=== PATIENT | female | born 1950 | race Two or more races ===

== ENCOUNTER 2018-05-22 13:12 | Emergency (ER) | payer SELFPAY ==
[~2018-05-22] VITALS: Ht 160 cm; Wt 50.8 kg
[2018-05-22 13:20] VITALS: BP 119/71
[2018-05-22 14:00] LABS: APPEARANCE,URINE CLEAR; BILIRUBIN, URINE NEGATIVE (NEGATIVE); COLOR,URINE PALE YELLOW; GLUCOSE, URINE (UA) NEGATIVE (NEGATIVE); KETONES,URINE NEGATIVE (NEGATIVE); LEUKOCYTE ESTERASE ,URINE 1+ (NEGATIVE); NITRITE,URINE NEGATIVE (NEGATIVE); PH,URINE 5 (4.5-8.0); PROTEIN,URINE NEGATIVE (NEGATIVE); UROBILINOGEN,URINE NORMAL MG/DL (0.0-1.0)
--- NOTE | 2018-05-22 14:15 | Emergency Room Report ---
History of Present Illness General Chief Complaint: Female Urogenital Problems Source: Patient Present Illness HPI 67-year-old female patient presents ER complaining of dysuria for the past 2 days. Patient reports she has been taking a urine pain medicine for relief of painful urination, reports symptoms relieved when taking medication. Reports frequency during this time. Denies hematuria, dysuria, urgency. Denies fever, chest pain, shortness breath, abdominal pain, flank pain, vomiting. Denies vaginal discharge. Allergies: Coded Allergies: No Known Allergies (Unverified , 05/22/18) Patient History Past Medical History: see triage record Reviewed Nursing Documentation: PMH: Agreed; PSxH: Agreed Nursing Documentation-PMH Past Medical History: No History, Except For Hx Diabetes: No - hypothiroid Hx Cancer: Yes - throat CA Review of Systems All Other Systems: negative except mentioned in HPI Physical Exam Vital Signs Date Time Temp Pulse Resp B/P (MAP) Pulse Ox O2 Delivery O2 Flow Rate FiO2 05/22/18 13:18 97.7 88 18 119/71 98 Room Air Sp02 EP Interpretation: reviewed, normal General Appearance: well appearing, no apparent distress, alert, GCS 15, non- toxic Head: normocephalic, atraumatic Eyes: bilateral eye normal inspection, bilateral eye PERRL ENT: hearing grossly normal, normal pharynx, no angioedema, normal voice, uvula midline, moist mucus membranes Neck: full range of motion Respiratory: lungs clear, normal breath sounds, no rhonchi, no respiratory distress, no accessory muscle use, no wheezing, speaking full sentences Cardiovascular #1: regular rate, rhythm, no edema Gastrointestinal: non tender, soft, no mass, non-distended, no guarding, no rebound Genitourinary: no CVA tenderness Musculoskeletal: back normal, digits/nails normal, gait/station normal, normal range of motion, non-tender, no calf tenderness, pelvis stable Neurologic: alert, oriented x3, responsive, motor strength/tone normal, sensory intact Psychiatric: mood/affect normal Skin: no rash Medical Decision Making PA Attestation Dr. Kennedy is my supervising Physician whom patient management has been discussed with. Diagnostic Impression: Primary Impression: Urinary tract infection ER Course Pt presents to ED c/o dysuria and frequency. DDX considered but are not limited to cystitis, pyelonephritis, STI, vaginitis, . 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 VITAL SIGNS are WNL, patient is afebrile. Ordered UA. ER COURSE UA results show 4+ blood and patient symptomatic, few epithelial cells with moderate bacteria, indicate likely UTI, will treat with abx. If concern for STI, followup with STI clinic for testing and treatment. Denies STI concern. Patient is resting comfortably in chair, nontoxic appearing, in no acute distress. Patient states they feel better and is ready to go home. ER precautions given. Follow with primary care provider to discuss further treatment and referral to urology specialist. Continue take medication for pain symptoms. DISCHARGE -Rx provided for Keflex Patient is stable for discharge. Patient resting comfortably, in no acute distress, nontoxic appearing, talking without difficulty. Will provide with patient care instructions and any necessary prescriptions. Patient understands and agrees to treatment plan. Patient encouraged to drink plenty of fluids. Patient to take medication as instructed. Care plan and follow-up instructions provided. Patient questions asked and answered. Reports understanding and agreement to treatment plan. Patient instructed to follow-up with primary care provider in 3 - 5 days. ER precautions given. Patient instructed to return to ER immediately for any new or worsening of symptoms. Including but not limited to fever, abdominal pain , intractable vomiting. - Please note that this Emergency Department Report was dictated using [employer] tender technology software, occasionally this can lead to erroneous entry secondary to interpretation by the dictation equipment. Labs Test 05/22/18 13:20 Urine Color Pale yellow Urine Appearance Clear Urine pH 5 (4.5-8.0) Urine Specific [place] 1.020 (1.005-1.035) Urine Protein Negative (NEGATIVE) Urine Glucose (UA) Negative (NEGATIVE) Urine Ketones Negative (NEGATIVE) Urine Blood 4+ (NEGATIVE) Urine Nitrite Negative (NEGATIVE) Urine Bilirubin Negative (NEGATIVE) Urine Urobilinogen Normal MG/DL (0.0-1.0) Urine Leukocyte Esterase 1+ (NEGATIVE) Urine RBC 2-4 /HPF (0 - 2) Urine WBC 2-4 /HPF (0 - 2) Urine Squamous Epithelial Cells Few /LPF (NONE/OCC) Urine Bacteria Occasional /HPF (NONE) Last Vital Signs Date Time Temp Pulse Resp B/P (MAP) Pulse Ox O2 Delivery O2 Flow Rate FiO2 05/22/18 13:20 97.7 78 18 119/71 98 Room Air Disposition: HOME, SELF-CARE Condition: Stable Scripts Cephalexin* (KEFLEX*) 500 Mg Capsule 500 MG ORAL EVERY 12 HOURS, #14 CAP 0 Refills Prov: Yosi Urias 05/22/18 Patient Instructions: Urinary Tract Infection Additional Instructions: Followup with primary care provider and followup with and./or OBGYN. Drink plenty of fluids. Take medications as directed. Patient questions asked and answered. ER precautions given, patient instructed to return to ER immediately for any new or worsening of symptoms. Yosi Urias May 22, 2018 14:15
[2018-05-22] MEDS ORDERED: LEVOTHYROXINE75 MCG ORAL (14:20)
[2018-05-22] MEDS ORDERED: CEPHALEXIN500 MG ORAL (14:21)
[2018-05-22 14:29] VITALS: BP 121/78
== END 2018-05-22 14:30 | disposition home or self-care (01) ==
LOC: EMR 13:50
DX: N39.0 Urinary tract infection, site not specified (principal); Z85.89 Personal history of malignant neoplasm of other organs and systems
CPT/HCPCS: 81003; 99283